=== PATIENT | male | born 1970 | race Caucasian/White ===

== ENCOUNTER 2017-09-21 12:56 | Emergency (ER) | payer OTHER ==
[~2017-09-21] VITALS: Ht 177.8 cm; Wt 93.4 kg
[~2017-09-21 12:56] MED LIST: LEVAQUIN500 MG; TOPROL XL100 M1
== END 2017-09-21 20:26 | disposition home or self-care (01) ==
LOC: ER 12:56
DX: M54.5 Low back pain (principal); R10.31 Right lower quadrant pain

== ENCOUNTER 2019-05-16 10:21 | Emergency (ER) | payer OTHER ==
[~2019-05-16] VITALS: Ht 177.8 cm; Wt 90.7 kg
== END 2019-05-16 18:06 | disposition home or self-care (01) ==
LOC: ER 10:21
DX: N20.1 Calculus of ureter (principal)

== ENCOUNTER 2022-08-24 16:05 | Emergency (ER) | payer OTHER ==
[~2022-08-24] VITALS: Ht 177.8 cm; Wt 88.5 kg
== END 2022-08-24 19:51 | disposition home or self-care (01) ==
LOC: ER 16:05
DX: S61.211A Laceration without foreign body of left index finger without damage to nail, initial encounter (principal); S61.213A Laceration without foreign body of left middle finger without damage to nail, initial encounter; W45.8XXA Other foreign body or object entering through skin, initial encounter; Y93.9 Activity, unspecified; Y92.9 Unspecified place or not applicable; Z91.041 Radiographic dye allergy status

== ENCOUNTER 2025-01-24 10:52 | Emergency (ER) | payer OTHER ==
[~2025-01-24] VITALS: Ht 177.8 cm; Wt 95.3 kg
[2025-01-24] MEDS ORDERED: ALTACE2.5 MG (11:46)
[2025-01-24 12:45] LABS: BASO % 0.6 % (0.1-1.2); EOS # 0.12 (0.04-0.54); EOS % 2.2 % (0.7-7.0); LYMPH # 1.94 (1.18-3.74); LYMPH % 35.7 % (19.3-53.1); MEAN PLATELET VOLUME 10.50 fl (9.4-12.4); MONO # 0.36 (0.24-0.82); MONO % 6.6 % (4.7-12.5); NEUT # 2.97 (1.56-6.13); NEUT % 54.5 % (34.0-71.1); RED CELL DISTRIBUTION WIDTH 12.4 % (11.6-14.4)
[2025-01-24 13:12] LABS: ALT/SGPT 35.0 U/L (12-78); AST/SGOT 18.0 U/L (15-37); BILIRUBIN TOTAL 0.86 mg/dL (0.3-1.2); BUN CREA RATIO 24.0 (7.0-25.0); CREATININE SERUM 0.95 mg/dL (0.70-1.30); GFR 82.31; GLOBULINA 4.0 G/DL (2.4-3.5); GLUCOSE FASTING 132.0 mg/dL (65-100); OSMOLALITY SERUM 287.0 MOSM/KG (275-295)
[2025-01-24 13:17] LABS: URINE APPEARANCE Clear; URINE BILIRRUBIN Negative (NEGATIVE); URINE BLOOD Moderate; URINE COLOR Yellow; URINE GLUCOSE Negative (NEGATIVE); URINE KETONE Trace (NEGATIVE); URINE LEUKOCYTE Small; URINE NITRATE Positive; URINE PROTEIN Negative (NEGATIVE); URINE UROBILINOGEN 0.2 E.U./dl
[2025-01-24 13:20] LABS: INR 1.01
[2025-01-24 13:21] LABS: URINE BACTERIA 1148.1 uL (0.0-1933); URINE EPITHELIAL CELLS 5.5 uL (0.0-38.8); URINE RBC 51.6 uL (0.0-20.8); URINE WBC 104.2 uL (0.0-23.2)
[2025-01-24 13:37] LABS: URINE CAST 0.43 uL (0.0-1.40)
[2025-01-24] MEDS ORDERED: CEFTRIAXONE SODIUM 1,000 MG VIAL ONE (13:56)
[2025-01-24] MEDS ORDERED: LIDOCAINE HCL 1% 10ML VIAL ONE (13:56)
[2025-01-24] MEDS ORDERED: CEFTRIAXONE SODIUM 1,000 MG VIAL IM ONE (14:00)
[2025-01-24] MEDS ORDERED: PEPCID AC20 MG PO (14:18)
[2025-01-24] MEDS ORDERED: BACTRIM DS TAB1 EACH PO (14:18)
[2025-01-24] MEDS ORDERED: TAMS0.4C PO (14:18)
== END 2025-01-24 14:25 | disposition home or self-care (01) ==
LOC: ER 10:52
PROVIDERS: General Practice
DX: R31.9 Hematuria, unspecified (principal); I10 Essential (primary) hypertension; Z91.041 Radiographic dye allergy status

== ENCOUNTER 2025-04-13 09:54 | Outpatient (CLI) | payer OTHER ==
[~2025-04-13 09:54] MED LIST changes: +ALTACE2.5 MG; +BACTRIM DS TAB1 EACH PO; +PEPCID AC20 MG PO; +TAMS0.4C PO
== END 2025-04-13 10:01 | disposition home or self-care (01) ==
LOC: TOM 09:54
PROVIDERS: ATTEND Urology
DX: R31.0 Gross hematuria (principal)